=== PATIENT | female | born 1980 | race Caucasian/White ===

== ENCOUNTER 2021-03-01 21:03 | Emergency (ER) | payer SELFPAY ==
[~2021-03-01] VITALS: Ht 170.2 cm; Wt 82.6 kg
[2021-03-01] MEDS ORDERED: oxyCODONE/APAP 5/325 1 TAB TABLET PO ONE (22:00)
[2021-03-01] MEDS ORDERED: ONDANSETRON ODT 4 MG TAB.RAPDIS PO ONE (22:00)
--- NOTE | 2021-03-01 22:14 | PHYS DOC ---
Past History Past Medical History: No Pertinent History Alcohol Use: None Social History Narrative: past Adult General Chief Complaint Chief Complaint: FLANK PAIN HPI HPI Patient is a 40-year-old female with a past medical history significant for multiple episodes of kidney stones who presents with a chief complaint of right flank pain. States that it started earlier today, sharp in nature, 7 out of 10, with some radiation down to her groin. States this feels similar to previous stones. Denies any recent travel, traumas, fevers, chest pain, shortness of breath, other abdominal pain, dysuria, hematuria or blood in the stool. Review of Systems Review of Systems Review of systems otherwise unremarkable except noted in HPI Current Medications Current Medications Current Medications Medications (Trade) Dose Ordered Sig/Chalo Start Time Stop Time Status Last Admin Dose Admin Ondansetron HCl (Zofran Odt) 4 mg 1X ONCE 03/01/21 22:00 03/01/21 22:01 DC 03/01/21 22:11 4 MG Oxycodone/ Acetaminophen (Percocet 5/325) 2 tab 1X ONCE 03/01/21 22:00 03/01/21 22:01 DC 03/01/21 22:11 2 TAB Allergies Allergies Allergies Coded Allergies Type Severity Reaction Last Updated Verified Sulfa (Sulfonamide Antibiotics) Allergy Intermediate 03/01/21 Yes Physical Exam Physical Exam Constitutional: Well developed, well nourished, no acute distress, non-toxic appearance. [] HENT: Normocephalic, atraumatic, bilateral external ears normal, oropharynx moist, no oral exudates, nose normal. [] Eyes:conjunctiva normal, no discharge. [] Cardiovascular:Heart rate regular rhythm, no murmur [] Lungs & Thorax: Bilateral breath sounds clear to auscultation [] Abdomen: soft, no tenderness, no masses, no pulsatile masses. [] Skin: Warm, dry, no erythema, no rash. [] Back: No tenderness, no CVA tenderness. [] Extremities: No tenderness, no cyanosis, no clubbing, ROM intact, no edema. [] Neurologic: Alert and oriented X 3, normal motor function, normal sensory function, no focal deficits noted. [] Psychologic: Affect normal, judgement normal, mood normal. [] Current Patient Data Vital Signs Vital Signs Date Time Temp Pulse Resp B/P (MAP) Pulse Ox O2 Delivery O2 Flow Rate FiO2 4/24/21 22:11 18 03/01/21 21:15 97.7 119 123/75 (91) 94 Lab Results Laboratory Tests Test 03/01/21 21:43 POC Urine HCG, Qualitative hcg negative (Negative) EKG EKG [] Radiology/Procedures Radiology/Procedures [] CT abdomen pelvis without contrast dated 03/01/2021. No comparison available. CLINICAL INDICATION: Right flank pain. History of stone. TECHNIQUE: Contiguous axial imaging the abdomen pelvis performed without the administration of IV or oral contrast. One or more of the following individualized dose reduction techniques were utilized for this examination: 1. Automated exposure control 2. Adjustment of the mA and/or kV according to patient size 3. Use of iterative reconstruction technique. FINDINGS: Limited images of lung bases are clear. Heart size within normal limits. No pleural or pericardial effusion. Solid abdominal viscera not well evaluated in the absence of contrast material. No apparent attenuation abnormality of the liver or spleen. Pancreas, adrenal glands, gallbladder unremarkable. Kidneys are symmetric in size and attenuation. No calcific renal or ureteral stone. No inflammatory changes in the perinephric fat. Unopacified GI tract is normal in caliber and contour. No focal bowel wall thickening. No inflammatory stranding in the mesentery. Appendix is normal in caliber. No ascites or lymphadenopathy. Abdominal aorta normal in caliber. Images of pelvis show nondistended urinary bladder. Uterus and adnexa are unremarkable. There is a 3.4 cm left ovarian cyst. No ascites or lymphadenopathy. Bone windows show no acute findings. Multilevel spondylosis. IMPRESSION: 1. No acute abnormality of abdomen or pelvis. No renal stone or hydronephrosis. Normal appendix. 2. Small left ovarian cyst. Electronically signed by: Baldemar Alford MD (03/01/2021 11:15 PM) [facility] Heart Score C/O Chest Pain: No Risk Factors: Risk Factors: DM, Current or recent (<one month) smoker, HTN, HLP, family history of CAD, obesity. Risk Scores: Risk Factors: DM, Current or recent (<one month) smoker, HTN, HLP, family history of CAD, obesity. Course & Med Decision Making Course & Med Decision Making Patient is a 40-year-old female who presents with right flank pain, and nausea for day Vital signs notable for tachycardia. Physical exam noted above. Patient given Zofran for nausea and oxycodone for pain Laboratory analysis notable for leukocytosis and nitrite positive urinalysis. Given first dose of antibiotics in the emergency department. CT notable for small left ovarian cyst otherwise unremarkable. Discussed all findings with patient advised on antibiotic therapy for her UTI/pyelonephritis. Advised to follow-up with primary care physician first thing Wednesday to update on ED visit. Advised on pain control at home. Gave return precautions to the ED. Patient grateful, verbalized understanding and agreed with plan of discharge. Dragon Disclaimer Dragon Disclaimer This electronic medical record was generated, in whole or in part, using a voice recognition dictation system. Departure Departure: Impression: Primary Impression: Pyelonephritis Disposition: HOME / SELF CARE / HOMELESS Condition: GOOD Referrals: PCP,PAIGE (PCP) ZAC ROSENTHAL MD Patient Instructions: Pyelonephritis, Adult Additional Instructions: Please read all of the attached information carefully on your diagnosis. Please take your antibiotics as prescribed. Please follow-up with your primary care physician first thing Wednesday to update on ED visit and set up a follow-up as needed. Please come back to the emergency department immediately with new or concerning symptoms as discussed. Scripts Cephalexin (CEPHALEXIN) 500 Mg Capsule 1 CAP PO TID for UTI for 10 Days, #30 CAP Prov: YARIEL BLOCK MD 03/01/21 YARIEL BLOCK MD Mar 01, 2021 22:14
[2021-03-01 22:27] LABS: BASO # 0.1 x10^3/uL (0.0-0.2); BASO % 1 % (0-3); EOS % 0 % (0-3); HEMATOCRIT 38.3 % (36.0-47.0); HEMOGLOBIN 12.7 g/dL (12.0-15.5); LYMPH % 7 % (24-48); MEAN CORPUSCULAR HEMOGLOBIN 30 pg (25-35); MEAN CORPUSCULAR HGB CONC 33 g/dL (31-37); MEAN CORPUSCULAR VOLUME 92 fL (79-100); MONO # 1.2 x10^3/uL (0.0-1.1); MONO % 9 % (0-9); NEUT # 11.4 x10^3uL (1.8-7.7); NEUT % 84 % (31-73); PLATELET COUNT 274 x10^3/uL (140-400); RED BLOOD COUNT 4.19 x10^6/uL (3.50-5.40); RED CELL DISTRIBUTION WIDTH 13.6 % (11.5-14.5); WHITE BLOOD COUNT 13.6 x10^3/uL (4.0-11.0)
[2021-03-01 22:31] LABS: CALCIUM 8.7 mg/dL (8.5-10.1); CREATININE 0.9 mg/dL (0.6-1.0); POTASSIUM 3.6 mmol/L (3.5-5.1)
[2021-03-01 22:34] LABS: BILIRUBIN,URINE NEG (NEG); CLARITY,URINE CLOUDY; COLOR,URINE YELLOW; GLUCOSE,URINE NEG (NEG)
[2021-03-01 22:35] LABS: BACTERIA,URINE MANY /HPF (0-FEW); NITRITE,URINE POS (NEG); UROBILINOGEN,URINE 0.2 mg/dL (0.2 mg/dL); WBC,URINE TNTC /HPF (0-4)
--- NOTE | 2021-03-01 23:17 | RAD ---
CT abdomen pelvis without contrast dated 03/01/2021. No comparison available. CLINICAL INDICATION: Right flank pain. History of stone. TECHNIQUE: Contiguous axial imaging the abdomen pelvis performed without the administration of IV or oral contra st. One or more of the following individualized dose reduction techniques were utilized for this examinat ion: 1. Automated exposure control 2. Adjustment of the mA and/or kV according to patient size 3. Use of iterative reconstruction technique. FINDINGS: Limited images of lung bases are clear. Heart size within normal limits. No pleural or pericardial ef fusion. Solid abdominal viscera not well evaluated in the absence of contrast material. No apparent attenuati on abnormality of the liver or spleen. Pancreas, adrenal glands, gallbladder unremarkable. Kidneys are symmetric in size and attenuation. No calcific renal or ureteral stone. No inflammatory c hanges in the perinephric fat. Unopacified GI tract is normal in caliber and contour. No focal bowel wall thickening. No inflammator y stranding in the mesentery. Appendix is normal in caliber. No ascites or lymphadenopathy. Abdominal aorta normal in caliber. Images of pelvis show nondistended urinary bladder. Uterus and adnexa are unremarkable. There is a 3. 4 cm left ovarian cyst. No ascites or lymphadenopathy. Bone windows show no acute findings. Multilevel spondylosis. IMPRESSION: 1. No acute abnormality of abdomen or pelvis. No renal stone or hydronephrosis. Normal appendix. 2. Small left ovarian cyst. Electronically signed by: Baldemar Alford MD (03/01/2021 11:15 PM) [facility]
[2021-03-01] MEDS ORDERED: CEPH500C PO (23:29)
[2021-03-01] MEDS ORDERED: cefTRIAXone IM 1 GM VIAL IM ONE (23:30)
[2021-03-01 23:43] VITALS: BP 100/55
== END 2021-03-01 23:44 | disposition home or self-care (01) ==
LOC: ER 21:03
DX: N12 Tubulo-interstitial nephritis, not specified as acute or chronic (principal); N83.202 Unspecified ovarian cyst, left side
CPT/HCPCS: 36415; 74176; 80048; 81001; 81025; 85025; 87086; 96372; 99284; J0696; Q0162

== ENCOUNTER 2021-03-04 02:03 | Inpatient (IN) | payer MEDICAID ==
[~2021-03-04] VITALS: Ht 170.2 cm; Wt 89.7 kg
[2021-03-04] VITALS (8 sets, daily range): BP systolic 87–98; BP diastolic 54–68
[~2021-03-04 02:03] MED LIST: CEPH500C PO
--- NOTE | 2021-03-04 02:48 | PHYS DOC ---
Past History Past Medical History: No Pertinent History Past Surgical History: , Tonsillectomy, Other Additional Past Surgical Histo: wound vac Smoking: Cigarettes Alcohol Use: None Drug Use: None General Adult EDM: Chief Complaint: FLANK PAIN HPI: HPI: 40-year-old female presents with report of flank pain left greater than right x1 week. Patient was seen and evaluated at [facility] in the Emergency department on 03/01/2021 per [facility] review. At that time patient was diagnosed with pyelonephritis and started on Keflex antibiotic. Patient does report compliance with taking her Keflex. Reports symptoms have significantly worsened including bilateral flank pain and nausea/vomiting. [facility] review also noted urine culture growing E. coli. Sensitivities/resistance pending. Denies trauma. Reports subjective fever/chills and generalized malaise. Denies known exposure to COVID-19. Patient does report taking Tylenol x3 approximately 2 hours ago for pain and discomfort. Review of Systems: Review of Systems: Constitutional: Reports subjective fever/chills and generalized malaise Eyes: Denies redness or eye pain HENT: Denies nasal congestion or sore throat Respiratory: Denies cough or shortness of breath Cardiovascular: Denies chest pain or palpitations GI: Reports abdominal pain, nausea, and vomiting : Reports dysuria; denies hematuria Musculoskeletal: Reports flank pain; denies extremity pain Integument: Denies rash or skin lesions Neurologic: Denies headache, focal weakness or sensory changes Complete systems were reviewed and found to be within normal limits, except as documented in this note. Current Medications: Current Meds: Current Medications Medications (Trade) Dose Ordered Sig/[facility] Start Time Stop Time Status Last Admin Dose Admin Ceftriaxone Sodium 1 gm/ Sodium Chloride 50 ml @ 100 mls/hr 1X ONCE 03/04/21 03:00 03/04/21 02:42 DC Ketorolac Tromethamine (Toradol 15mg Vial) 15 mg 1X ONCE 03/04/21 03:00 03/04/21 03:01 Ondansetron HCl (Zofran) 4 mg 1X ONCE 03/04/21 03:00 03/04/21 03:01 Piperacillin Sod/ Tazobactam Sod 4.5 gm/Sodium Chloride 50 ml @ 100 mls/hr 1X ONCE 03/04/21 03:00 03/04/21 03:29 Sodium Chloride 1,000 ml @ 1,000 mls/hr 1X ONCE 03/04/21 03:00 03/04/21 03:59 Allergies: Allergies: Allergies Coded Allergies Type Severity Reaction Last Updated Verified Sulfa (Sulfonamide Antibiotics) Allergy Intermediate 03/01/21 Yes Physical Exam: PE: Constitutional: Well developed, well nourished, no acute distress, non-toxic appearance HENT: Normocephalic, atraumatic Eyes: Conjunctiva normal, no discharge Neck: Normal range of motion, no tenderness, supple, no meningeal signs Lungs & Thorax: No respiratory distress, equal chest rise and fall Abdomen: Soft, suprapubic tenderness, no guarding/rebound tenderness/distention Skin: Warm, dry, no erythema, no rash Back: No tenderness, bilateral CVA tenderness Extremities: No tenderness, ROM intact, no edema Neurologic: Alert and oriented X 3, normal motor function, normal sensory function, no focal deficits noted Psychologic: Affect normal, judgment normal Current Patient Data: Vital Signs: Vital Signs Date Time Temp Pulse Resp B/P (MAP) Pulse Ox O2 Delivery O2 Flow Rate FiO2 03/04/21 02:24 98.5 118 18 156/56 (89) 98 Room Air EKG: EKG: [] Radiology/Procedures: Radiology/Procedures: [] Heart Score: C/O Chest Pain: N/A Course & Med Decision Making: Course & Med Decision Making Pertinent Lab studies reviewed. (See chart for details) Patient with recent diagnosis of pyelonephritis from evaluation in the ER at [facility] on 03/01/2021. Patient had laboratory evaluation as well as CT imaging at that time. UA concerning for infection. Patient was given Keflex and reports has been taking as prescribed. Patient reports symptoms have become worse including nausea and vomiting and flank pain. Patient tachycardic upon arrival. Concern for possible sepsis. IV fluid hydration given. Pain/nausea addressed. Empiric antibiotic initiated. Labs obtained and posted to chart. WBC and tachycardia meet sepsis criteria. Lactic acidosis elevated meeting severe sepsis criteria. Sepsis bolus fluids ordered. Additional Levaquin also provided. Hypokalemia addressed. Patient requiring admission for further evaluation and treatment. Discussed with Dr. Hong (hospitalist) who is in agreement with admission. Discussed findings and plan with patient, who acknowledges understanding and agreement. Katrin Disclaimer: Katrin Disclaimer: This electronic medical record was generated, in whole or in part, using a voice recognition dictation system. Departure Departure: Impression: Primary Impression: Septic shock Additional Impressions: Pyelonephritis Failure of outpatient treatment Hypokalemia Disposition: ADMITTED INPATIENT Admitting Physician: Tiff Hong Condition: STABLE Referrals: PCP,NO (PCP) Sepsis Assessment Date and Time of Assessment Date: Mar 04, 2021 Time: 03:42 Fluid Challenge: Is the fluid challenge complet: No IBW Target Volume Used: No BMI > 30: No Vital Signs Vital Signs Vital Signs Date Time Temp Pulse Resp B/P (MAP) Pulse Ox O2 Delivery O2 Flow Rate FiO2 03/04/21 02:24 98.5 118 18 156/56 (89) 98 Room Air Temperature Source: Oral Respirations Respiratory Effort: Normal Respiratory Pattern: Normal Cardiovascular Pulse Rhythm: Irregular (Tachycardia) Heart: S1 and S2 normal Lung Sounds Breath Sounds: Clear Capillary Refill Capillary Refill: Rt Hand < 3 seconds Peripheral Pulse Pulse Location: Radial Pulse Strength: Normal (2+) Pulse Assessment Method: Palpation Integumentary Skin: Warm, Dry Skin Moisture: Dry Skin Turgor: Normal Skin Color: warm, dry Fingernail Color: WNL Critical Care Time Critical care time was 30 minutes which includes time at bedside, spent in discussion of patient's care with specialists and/or family members, with interpretation of laboratory and/or radiological studies and is exclusive of procedures. NICANOR ARITA DO Mar 04, 2021 02:48
[2021-03-04] MEDS ORDERED: PIPERACILLIN/TAZOBACTAM 4.5 GM in IV NORMAL SALINE 50ML 50 ML IV ONE (03:00)
[2021-03-04] MEDS ORDERED: IV NORMAL SALINE 1,000ML 1,000 ML IV ONE ×4 (03:00→15:00)
[2021-03-04] MEDS ORDERED: KETOROLAC 15 MG/ML VIAL. IVP ONE (03:00)
[2021-03-04] MEDS ORDERED: ONDANSETRON PF 4 MG/2 ML VIAL. IVP PRN (03:00)
[2021-03-04] MEDS ORDERED: ACETAMINOPHEN 325 MG TABLET PO PRN (03:00)
[2021-03-04] MEDS ORDERED: ONDANSETRON PF 4 MG/2 ML VIAL. IVP ONE (03:00)
[2021-03-04] MEDS ORDERED: IV NORMAL SALINE 50ML 50 ML ONE (03:18)
[2021-03-04] MEDS ORDERED: PIPERACILLIN/TAZOBACTAM 4.5 GM VIAL IV ONE (03:18)
[2021-03-04 03:20] LABS: BASO # 0.1 x10^3/uL (0.0-0.2); BASO % 1 % (0-3); EOS # 0.1 x10^3/uL (0.0-0.7); EOS % 1 % (0-3); HEMATOCRIT 35.5 % (36.0-47.0); HEMOGLOBIN 11.5 g/dL (12.0-15.5); LYMPH # 1.5 x10^3/uL (1.0-4.8); LYMPH % 8 % (24-48); MEAN CORPUSCULAR HEMOGLOBIN 30 pg (25-35); MEAN CORPUSCULAR HGB CONC 33 g/dL (31-37); MEAN CORPUSCULAR VOLUME 93 fL (79-100); MONO % 11 % (0-9); NEUT # 14.8 x10^3uL (1.8-7.7); NEUT % 80 % (31-73); PLATELET COUNT 240 x10^3/uL (140-400); RED BLOOD COUNT 3.83 x10^6/uL (3.50-5.40); RED CELL DISTRIBUTION WIDTH 13.2 % (11.5-14.5); WHITE BLOOD COUNT 18.5 x10^3/uL (4.0-11.0)
[2021-03-04 03:28] LABS: CALCIUM 8.1 mg/dL (8.5-10.1); CREATININE 0.9 mg/dL (0.6-1.0); POTASSIUM 3.1 mmol/L (3.5-5.1)
[2021-03-04 03:34] LABS: ALBUMIN 2.3 g/dL (3.4-5.0); ALBUMIN/GLOBULIN RATIO 0.6 (1.0-1.7); MAGNESIUM 1.8 mg/dL (1.8-2.4); TOTAL BILIRUBIN 0.4 mg/dL (0.2-1.0); TOTAL PROTEIN 6.1 g/dL (6.4-8.2)
[2021-03-04 03:51] LABS: % BANDS 5 % (0-9); % LYMPHS 12 % (24-48); % MONOS 8 % (0-10); % SEGS 75 % (35-66); PLT ESTIMATE ADEQUATE (ADEQUATE)
[2021-03-04] MEDS ORDERED: IV NORMAL SALINE 500ML 500 ML IV ONE (04:00)
[2021-03-04] MEDS ORDERED: POTASSIUM CHLORIDE 20 MEQ TABLET.ER. PO ONE (04:00)
[2021-03-04 04:01] LABS: BACTERIA,URINE MOD /HPF (0-FEW); CLARITY,URINE HAZY; COLOR,URINE YELLOW; GLUCOSE,URINE NEG (NEG); NITRITE,URINE NEG (NEG); SQUAMOUS EPITHELIAL CELL,UR MANY /LPF; WBC,URINE >40 /HPF (0-4)
[2021-03-04 04:02] LABS: BILIRUBIN,URINE SMALL (NEG)
[2021-03-04] MEDS ORDERED: NO HOME MEDICATIONS (05:39)
[2021-03-04] MEDS: IV NORMAL SALINE 1,000ML 1,000 ML IV SCH ×3 (06:04→18:45)
[2021-03-04] MEDS: LACTOBACILLUS RHAMNOSUS GG 1 CAPSULE. PO SCH ×2 (08:31→21:35)
[2021-03-04 15:29] LABS: HEMATOCRIT 32.2 % (36.0-47.0); HEMOGLOBIN 10.5 g/dL (12.0-15.5); RED BLOOD COUNT 3.47 x10^6/uL (3.50-5.40); RED CELL DISTRIBUTION WIDTH 13.4 % (11.5-14.5); WHITE BLOOD COUNT 11.6 x10^3/uL (4.0-11.0)
[2021-03-04 15:37] LABS: CALCIUM 7.2 mg/dL (8.5-10.1); CREATININE 0.9 mg/dL (0.6-1.0); POTASSIUM 4.1 mmol/L (3.5-5.1)
--- NOTE | 2021-03-04 15:45 | HP ---
ADMIT DATE: 03/04/2021 HISTORY OF PRESENT ILLNESS: The patient is a 40-year-old female patient who presented to the emergency room again with a complaint of flank pain. She apparently presented with flank pain on the left greater than right for one week. She was seen and evaluated at [facility] in the emergency department on 03/01/2021. At that time, the patient was diagnosed with pyelonephritis and started on Keflex antibiotic. She stated that she has been taking her medication as prescribed, but symptoms have significantly worsened including bilateral flank pain and nausea and vomiting. She apparently has had urine sent for culture and sensitivity. However, when she arrived this morning, the sensitivity is still pending. The patient denied any fall or trauma. She did report of some fever, chills and generalized malaise. Denies any known exposure to COVID-19. She stated that she took Tylenol No. 3 approximately two hours prior to arrival to the emergency room. She was extensively investigated again and her white cell count was found to be high at 18,500, hemoglobin 11.5, and hematocrit 35. Her chemistry showed that she was hypokalemic, mildly elevated lactic acid. She received ceftriaxone, piperacillin and levofloxacin and received at least 2 liters normal saline and was admitted for inpatient antibiotic therapy. PAST MEDICAL HISTORY: Unremarkable. PAST SURGICAL HISTORY: Significant for right forearm abscess with a growth of MRSA, requiring incision and drainage and wound VAC. Tonsillectomy. ALLERGIES: SHE IS ALLERGIC TO SULFA DRUGS. MEDICATIONS: She is currently on no medication. FAMILY HISTORY: Unremarkable and noncontributory. SOCIAL HISTORY: She is , has five sons. She smokes half a pack a day. She does not drink alcohol or use any recreational drugs. She is a live-in [facility] [employer]. PHYSICAL EXAMINATION: GENERAL: On arrival to the emergency room, the patient looked well and was clearly in no apparent respiratory distress. She was actually pale, but no jaundice, cyanosis, or thyromegaly. No jugular venous distention. No limb edema. VITAL SIGNS: Her heart rate on arrival was 118, blood pressure is 156/56, temperature was 98.5, respiratory rate was 18 and oxygen saturation was 98%. HEAD, EYES, EARS, NOSE, AND THROAT: Normocephalic, atraumatic. NECK: Supple. HEART: Showed normal first and second heart sounds. No gallop, rub or murmur. CHEST: Showed central trachea, equal bilateral chest expansion and air entry. Vesicular breath sounds. No crepitation or rhonchi. ABDOMEN: Distended, soft with suprapubic tenderness. No guarding or rebound tenderness. BACK: Her back showed no tenderness. However, she did have bilateral costovertebral tenderness, more on the left than right. NEUROLOGIC: She was alert and oriented x3 with normal motor and sensory function. PSYCHOLOGICAL: Affect and judgment was normal. LABORATORY DATA: In the emergency room, she has had lab work done, which showed a white cell count of 18,500, hemoglobin 11.5, hematocrit 35.5, MCV 93, and platelet count 240,000 with normal manual differential. Her serum sodium was 136, potassium 3.1, chloride 102, bicarbonate 24, anion gap of 10, BUN 11, creatinine 0.9. Estimated GFR was 69 mL per minute. Her glucose was 158. Lactic acid was 2.4, calcium was 8.1, magnesium was 1.8. Total bilirubin, AST, ALT, alkaline phosphatase were normal. Total protein 6.1, albumin was 2.3. Her urinalysis showed the urine was yellow, hazy with a pH of 5.5, specific gravity 1.025, urine protein was 100 mg/dL. The urine was negative for glucose. There was trace of ketones, large amount of blood, negative for nitrite, trace of leukocyte esterase with 3-5 rbc's, more than 40 wbc's, and moderate amount of bacteria. ASSESSMENT AND PLAN: The patient was admitted with a diagnosis of acute pyelonephritis and sepsis with failure of outpatient therapy and hypokalemia. She has received about 2 liters of normal saline and was treated also with a dose of piperacillin-tazobactam as well as ceftriaxone and potassium. I am not sure about whether she has received levofloxacin. Subsequently, her urine culture showed that she has grown greater than 100,000 colony-forming units per mL of gram-negative rods identified as Escherichia coli, ESBL, and the bacteria is sensitive to ciprofloxacin as well as levofloxacin, ertapenem, gentamicin, meropenem, piperacillin-tazobactam. The patient has received a dose of Zosyn. My plan is to make sure that she has received levofloxacin. If not, we will start it again. We will give her one dose today and repeat her labs again tomorrow. I will also make sure that her potassium is replenished; and obviously if she is doing fine tomorrow, she can be discharged on oral levofloxacin. LIYA DR: Nathen TID: [id number]
[2021-03-04] MEDS: HYDROmorphone PF 2 MG/ML VIAL IVP PRN (21:35)
[2021-03-05] MEDS: HYDROmorphone PF 2 MG/ML VIAL IVP PRN ×4 (03:09→19:11)
[2021-03-05 05:02] VITALS: BP 107/62
[2021-03-05] MEDS: ACETAMINOPHEN 325 MG TABLET PO PRN ×3 (05:03→20:33)
[2021-03-05 06:26] LABS: BASO % 0 % (0-3); EOS # 0.1 x10^3/uL (0.0-0.7); EOS % 1 % (0-3); HEMATOCRIT 34.1 % (36.0-47.0); HEMOGLOBIN 11.1 g/dL (12.0-15.5); LYMPH # 1.7 x10^3/uL (1.0-4.8); LYMPH % 14 % (24-48); MEAN CORPUSCULAR HEMOGLOBIN 30 pg (25-35); MEAN CORPUSCULAR HGB CONC 33 g/dL (31-37); MEAN CORPUSCULAR VOLUME 92 fL (79-100); MONO # 1.4 x10^3/uL (0.0-1.1); MONO % 12 % (0-9); NEUT # 8.9 x10^3uL (1.8-7.7); NEUT % 74 % (31-73); PLATELET COUNT 254 x10^3/uL (140-400); RED BLOOD COUNT 3.69 x10^6/uL (3.50-5.40); RED CELL DISTRIBUTION WIDTH 13.3 % (11.5-14.5); WHITE BLOOD COUNT 12.1 x10^3/uL (4.0-11.0)
[2021-03-05 06:39] LABS: ALBUMIN 1.9 g/dL (3.4-5.0); ALBUMIN/GLOBULIN RATIO 0.5 (1.0-1.7); CALCIUM 7.5 mg/dL (8.5-10.1); CREATININE 0.8 mg/dL (0.6-1.0); POTASSIUM 3.7 mmol/L (3.5-5.1); TOTAL BILIRUBIN 0.4 mg/dL (0.2-1.0); TOTAL PROTEIN 5.7 g/dL (6.4-8.2)
[2021-03-05 10:56] VITALS: BP 89/58
[2021-03-05 12:27] VITALS: BP 101/67
[2021-03-05] MEDS: LACTOBACILLUS RHAMNOSUS GG 1 CAPSULE. PO SCH ×2 (12:27→20:33)
[2021-03-05] MEDS: IV NORMAL SALINE 1,000ML 1,000 ML IV SCH ×2 (14:48→20:48)
[2021-03-05 15:38] VITALS: BP 102/58
[2021-03-05 19:20] VITALS: BP 104/71
[2021-03-05 22:31] VITALS: BP 109/69
[2021-03-06] MEDS: HYDROmorphone PF 2 MG/ML VIAL IVP PRN ×5 (00:16→22:51)
--- NOTE | 2021-03-06 02:28 | PN ---
DATE: 03/05/2021 ATTENDING PHYSICIAN: Dr. Latham, Dr. Hong SUBJECTIVE: Still symptomatic with flank pain. OBJECTIVE: VITAL SIGNS: Blood pressure this morning is up to 107/62 mmHg, pulse is 90 and regular, temperature is still elevated at 100.9 degrees Fahrenheit, oxygen saturation 95% on room air. HEENT: Head is without trauma. Pupils are reactive. Sclerae nonicteric. Oropharynx is clear. NECK: Supple. No bruits identified. LUNGS: Clear. CARDIOVASCULAR: Regular heart tones. No gallops. ABDOMEN: Soft. Minimal guarding, no rebound tenderness. EXTREMITIES: Without edema. NEUROLOGIC: Focally intact. Speech is fluent. SKIN: Warm and dry. LABORATORY DATA: Blood cultures are negative after 24 hours. Urine cultures as noted E. coli with multiple drug resistant. ASSESSMENT: 1. Acute pyelonephritis. 2. Multiresistant Escherichia coli infection. 3. Hypotension, improved and currently normotensive. PLAN: 1. Continue IV hydration. 2. Continue IV Levaquin. Sensitivities noted. 3. Diet as tolerated. 4. P.r.n. pain meds. ELSY/MORENO DR: ELSY/donnie TID: [id number]
[2021-03-06 05:23] VITALS: BP 101/68
[2021-03-06] MEDS: ACETAMINOPHEN 325 MG TABLET PO PRN ×3 (05:23→22:50)
[2021-03-06] MEDS: LACTOBACILLUS RHAMNOSUS GG 1 CAPSULE. PO SCH ×2 (08:20→22:51)
[2021-03-06] MEDS: IV NORMAL SALINE 1,000ML 1,000 ML IV SCH ×2 (08:21→22:50)
[2021-03-06 11:53] VITALS: BP 94/63
[2021-03-06 15:00] VITALS: BP 95/57
[2021-03-06 21:02] VITALS: BP 105/61
--- NOTE | 2021-03-07 01:37 | PN ---
DATE: 03/06/2021 ATTENDING PHYSICIAN: Dr. Hong. SUBJECTIVE: Flank pain, abdominal pain, nausea and still febrile. OBJECTIVE FINDINGS: VITAL SIGNS: T-max is 102.6 degrees Fahrenheit, blood pressure this morning is 101/68, pulse is 90 and regular, oxygen saturation 95% on room air. HEENT: Head is without trauma. Pupils are reactive. Sclerae nonicteric. Oropharynx clear. NECK: Supple, no bruits. LUNGS: Good breath sounds. CARDIOVASCULAR: Showed distant heart sounds. No gallops. ABDOMEN: Soft with minimal guarding, no rebound tenderness. EXTREMITIES: Show no cyanosis or edema. NEUROLOGIC: Functionally, flat affect, focally intact. Speech is fluent. SKIN: Warm to touch. ASSESSMENT: 1. A 40-year-old female with acute pyelonephritis. 2. Febrile episode related to infection. 3. Cultures grew multi-resistant Escherichia coli. PLAN: 1. Continue Levaquin as ordered, it is sensitive. 2. Continue IV hydration. 3. Pain and nausea control. 4. Diet as tolerated. JOSEY DR: ELSY/donnie TID: [id number]
[2021-03-07] MEDS: HYDROmorphone PF 2 MG/ML VIAL IVP PRN (04:23)
[2021-03-07 05:31] VITALS: BP 111/76
--- NOTE | 2021-03-07 20:04 | DS ---
DATE OF DISCHARGE: 03/07/2021 ATTENDING PHYSICIANS: Dr. Hong. Dr. Latham. FINAL DISCHARGE DIAGNOSES: 1. Acute pyelonephritis. 2. Multidrug resistant Escherichia coli, treated. 3. Hypotension, rehydrated. 4. Pain and nausea control. HISTORY: This is a pleasant 40-year-old female with UTI developing to pyelonephritis. She was admitted with symptomatic pain and dehydration. PHYSICAL EXAMINATION: Please see the dictated note. PERTINENT LABORATORY AND X-RAY STUDIES. Cultures of her urine did grow out a multidrug resistant E. coli, but sensitive to quinolones specifically Levaquin, hemoglobin 11.1 grams. White count initially 18,500; repeated was down to 11,600. Chemistry panel stable. Creatinine of 0.8 mg/dL. Electrolytes were within normal range. Transaminases were normal. COURSE IN THE HOSPITAL: The patient was admitted. She was on IV hydration. Blood pressure improved. Febrile illness, resolved. She received 4 full days of intravenous antibiotics, specifically Levaquin and Zosyn. When the cultures came back Levaquin was continued, Zosyn was stopped. On the 4th hospital day, her vital signs are stable. She was afebrile. She felt well. She was eating. Pain and nausea are better controlled. At this time, I recommended 6 more days of Levaquin 500 mg p.o. daily along with Percocet 10/325 one p.o. every 6 hours p.r.n. pain. She should follow up with her primary care physician in [facility]. She is in the process of getting established. The patient was then discharged from our hospital in stable condition with explicit instructions and followup care. Total discharge time spent [address]: Ciarra TID: [id number]
== END 2021-03-07 10:55 | disposition home or self-care (01) | DRG 871 ==
LOC: ER 02:03 → 1 SOUTH 02:53
PROVIDERS: ADMIT Internal Medicine; ATTEND Internal Medicine
DX: A41.9 Sepsis, unspecified organism (principal); R65.21 Severe sepsis with septic shock; N10 Acute pyelonephritis; Z16.24 Resistance to multiple antibiotics; B96.20 Unspecified Escherichia coli [E. coli] as the cause of diseases classified elsewhere; E86.0 Dehydration; E87.6 Hypokalemia; F17.210 Nicotine dependence, cigarettes, uncomplicated; Z98.891 History of uterine scar from previous surgery; Z88.2 Allergy status to sulfonamides
CPT/HCPCS: 36415; 80048; 80053; 81001; 83605; 83690; 83735; 85007; 85025; 85027; 87040; 87086; 96361; 96365; 96375; J0696; J1170; J1885; J1956; J2405; J2543; J3010; J7040; 99291-25; J7030